=== PATIENT | male | born 1980 | race Two or more races ===

== ENCOUNTER 2018-12-18 12:43 | Inpatient (IN) | payer SELFPAY ==
[~2018-12-18] VITALS: Ht 167.6 cm; Wt 59.9 kg
[2018-12-18] MEDS ORDERED: ASPIRIN 81MG TABLET PO ONE (13:00)
[2018-12-18 13:09] LABS: BASOPHILS % 0.8 % (0.0-2.0); EOSINOPHILS % 1.6 % (0.0-5.0); HEMATOCRIT. 50.3 % (42.0-52.0); LYMPHOCYTES % 24.5 % (20.0-50.0); MEAN CORPUSCULAR VOLUME 85.9 fL (80.0-94.0); MEAN PLATELET VOLUME 9.1 fl (7.4-10.4); NEUTROPHILS % 63.1 % (40.0-76.0); PLATELET 273 x1000/uL (130-400); RED BLOOD CELL COUNT 5.86 mill/uL (4.7-6.1); RED CELL DISTRIBUTION WIDTH 14.1 % (11.6-14.6)
[2018-12-18 13:20] LABS: CHLORIDE 108 mEq/L (98-107)
[2018-12-18 21:48] VITALS: BP 116/68
[2018-12-18 22:00] VITALS: BP 116/68
[2018-12-18 22:30] VITALS: BP 116/68
[2018-12-18] MEDS ORDERED: MORPHINE SULFATE 2 MG/ML CPJ (NOT FOR IM USE) IV PRN (22:45)
[2018-12-18] MEDS ORDERED: ONDANSETRON HCL 4MG/2ML INJ IV PRN (22:45)
[2018-12-19] VITALS: BP 108/59
[2018-12-19 04:00] VITALS: BP 121/62
[2018-12-19] MEDS: NITROGLYCERIN OINT 1GM/INCH UDPKT TD SCH ×2 (06:35→14:00)
[2018-12-19 08:00] VITALS: BP 107/58
[2018-12-19] MEDS ORDERED: ASPIRIN 325MG EC TABLET PO SCH (09:00)
[2018-12-19] MEDS ORDERED: ACETAMINOPHEN 325MG TABLET PO PRN (09:15)
[2018-12-19 16:00] VITALS: BP 95/69
== END 2018-12-19 18:30 | disposition home or self-care (01) | DRG 203 ==
LOC: ER 12:43 → 7WST 16:00 → ENRESERV 20:36
PROVIDERS: ADMIT Internal Medicine; ATTEND Internal Medicine
DX: M94.0 Chondrocostal junction syndrome [Tietze] (principal); E87.8 Other disorders of electrolyte and fluid balance, not elsewhere classified; I25.10 Atherosclerotic heart disease of native coronary artery without angina pectoris; Z79.899 Other long term (current) drug therapy
CPT/HCPCS: 36415; 71045; 80061; 83880; 84443; 84484; 93005; 93306; 93970; 99285